=== PATIENT | male | born 1975 | race Asian ===

== ENCOUNTER 2022-10-14 18:25 | Emergency (ER) | payer SELFPAY ==
[~2022-10-14] VITALS: Ht 167.6 cm; Wt 75.0 kg
[2022-10-14 18:27] VITALS: BP 165/117
[2022-10-14 19:09] LABS: BASOPHILS % 0.7 % (0.0-2.0); EOSINOPHILS % 0.5 % (0.0-5.0); HEMOGLOBIN. 14.6 g/dL (14.0-18.0); MEAN CORPUSCULAR HEMOGLOBIN 32.3 pg (28.0-32.0); MEAN CORPUSCULAR VOLUME 93.2 fL (80.0-94.0); MEAN PLATELET VOLUME 7.6 fl (7.4-10.4); NEUTROPHILS % 80.8 % (40.0-76.0); PLATELET 373 x1000/uL (130-400); RED BLOOD CELL COUNT 4.51 mill/uL (4.7-6.1); RED CELL DISTRIBUTION WIDTH 12.3 % (11.6-14.6)
[2022-10-14 19:17] LABS: CHLORIDE 107 mEq/L (98-107)
== END 2022-10-14 22:13 | disposition left against medical advice (07) ==
LOC: ER 18:25
DX: Z53.21 Procedure and treatment not carried out due to patient leaving prior to being seen by health care provider (principal)
CPT/HCPCS: 36415; 80053; 85025; 99281